=== PATIENT | female | born 1960 | race Caucasian/White ===

== ENCOUNTER 2016-06-09 03:58 | Emergency (ER) | payer MEDICAID ==
[~2016-06-09] VITALS: Ht 165.1 cm; Wt 81.8 kg
[2016-06-09] MEDS ORDERED: ALBUTEROL (0.083%) 2.5MG/3ML NEB HHN STA (05:21)
[2016-06-09] MEDS ORDERED: IPRATROPIUM BROMIDE (0.02%) 0.5MG/2.5ML NEB HHN STA (05:21)
[2016-06-09 05:52] LABS: BASOPHILS % 0.9 % (0.0-2.0); EOSINOPHILS % 1.5 % (0.0-5.0); HEMATOCRIT. 43.1 % (36.0-48.0); HEMOGLOBIN. 14.9 g/dL (12.0-16.0); MEAN CORPUSCULAR HEMOGLOBIN 31.7 pg (28.0-32.0); MEAN CORPUSCULAR HGB CONC 34.5 g/dL (31.0-37.0); MEAN PLATELET VOLUME 8.5 fl (7.4-10.4); MONOCYTES % 7.4 % (2.0-8.0); NEUTROPHILS % 53.2 % (40.0-76.0); PLATELET 171 x1000/uL (130-400); RED BLOOD CELL COUNT 4.68 mill/uL (4.2-5.4); RED CELL DISTRIBUTION WIDTH 13.4 % (11.6-14.6); WHITE BLOOD COUNT 6.7 x1000/uL (4.5-11.0)
[2016-06-09 06:06] LABS: CHLORIDE 100 mEq/L (98-107); INDEX HEMOLYSI 1 (1-3); INDEX ICTERIC 1 (1-4); INDEX LIPEMIC 1 (1-3)
[2016-06-09 06:15] LABS: ALANINE AMINOTRANSFERASE 62 IU/L (13-61); ALBUMIN 3.4 g/dL (3.4-5.0); ANION GAP 18; CALCIUM 8.5 mg/dL (8.5-10.1); CARBON DIOXIDE 26 mEq/L (21-32); LIPASE 435 IU/L (73-393); UREA NITROGEN BLOOD 17 mg/dL (7-21); eGFR > 60 mL/min (>60)
[2016-06-09 08:35] LABS: CLARITY URINE CLEAR (CLEAR); COLOR URINE YELLOW (YELLOW); GLUCOSE URINE NEGATIVE (NEGATIVE); KETONES URINE NEGATIVE (NEGATIVE); LEUKOCYTE ESTERASE URINE 1+ (NEGATIVE); NITRITE URINE NEGATIVE (NEGATIVE); OCCULT BLOOD URINE 2+ (NEGATIVE); PH URINE 6.5 (4.5-8.0); PROTEIN URINE NEGATIVE (NEGATIVE); SPECIFIC GRAVITY URINE 1.021 (1.005-1.030); UROBILINOGEN URINE 0.2 E.U./dL (0.2-1.0)
[2016-06-09 08:48] LABS: MUCUS URINE 2+ /lpf (< = 2+); SQUAMOUS EPITHELIAL CELL URINE 2+ /lpf (RARE/1+)
[2016-06-09 08:50] LABS: BACTERIA URINE 2+
[2016-06-09] MEDS ORDERED: SODIUM CHLORIDE 0.9% 1,000 ML IV ONE (09:00)
[2016-06-09] MEDS ORDERED: FAMOTIDINE 20MG/2ML VIAL IV SCH (09:00)
[2016-06-09] MEDS ORDERED: MORPHINE SULFATE 4 MG/ML CPJ (NOT FOR IM USE) IV ONE (09:00)
[2016-06-09] MEDS ORDERED: ONDANSETRON HCL 4MG/2ML VIAL IV ONE (09:00)
[2016-06-09 09:15] VITALS: BP 143/86
== END 2016-06-09 11:28 | disposition home or self-care (01) ==
LOC: ER 03:58
DX: K52.9 Noninfective gastroenteritis and colitis, unspecified (principal); R16.0 Hepatomegaly, not elsewhere classified; R74.0 Nonspecific elevation of levels of transaminase and lactic acid dehydrogenase [LDH]; K82.8 Other specified diseases of gallbladder
CPT/HCPCS: 36415; 76705; 80053; 81001; 81025; 83690; 85025; 87015; 87045; 87427; 87449; 96361; 96374; 96375; 99285; J2270; J2405; J3490; J7030; Z7610